=== PATIENT | female | born 1965 | race Caucasian/White ===

== ENCOUNTER 2018-06-01 04:05 | Emergency (ER) | payer MEDICAID, OTHER ==
[2018-06-01] MEDS: ACETAMINOPHEN 325 MG TAB PO (05:30)
[2018-06-01] MEDS: IBUPROFEN 200 MG TAB PO (05:30)
== END 2018-06-01 06:05 | disposition home or self-care (01) ==
LOC: FTE 04:05
DX: T16.1XXA Foreign body in right ear, initial encounter (principal); X58.XXXA Exposure to other specified factors, initial encounter; Y92.9 Unspecified place or not applicable
CPT/HCPCS: 99283; Z7502